=== PATIENT | female | born 1975 | race Asian ===

== ENCOUNTER 2020-08-10 09:59 | Outpatient (CLI) | payer OTHER | END 2020-08-10 22:40 | disposition home or self-care (01) | LOC: RAD 09:59 | PROVIDERS: ATTEND Internal Medicine | DX: M51.36 Other intervertebral disc degeneration, lumbar region (principal); M54.5 Low back pain; M16.12 Unilateral primary osteoarthritis, left hip; M25.552 Pain in left hip; F41.8 Other specified anxiety disorders ==